=== PATIENT | male | born 1935 | race Caucasian/White ===

== ENCOUNTER 2016-12-20 12:12 | Day surgery (SDC) | payer MEDICARE ==
[2016-12-13 08:12] LABS: HEMATOCRIT 45.6 % (40.0-51.0); HEMOGLOBIN 16.1 g/dL (13.6-17.8)
[2016-12-13 08:22] LABS: BUN (BLOOD UREA NITROGEN) 13 MG/DL (6-23); CHLORIDE, SERUM 105 MMOL/L (96-112); CO2 (CARBON DIOXIDE) 33 MMOL/L (24-34); CREATININE 0.84 MG/DL (0.70-1.30); GFR AFRICAN AMERICAN 97 ML/MIN (>=60); GFR NON AFRICAN AMERICAN 84 ML/MIN (>=60); GLUCOSE, SERUM 131 MG/DL (60-99); POTASSIUM, SERUM 4.2 MMOL/L (3.5-5.3); SODIUM, SERUM 142 MMOL/L (135-148)
[~2016-12-20] VITALS: Ht 180.3 cm; Wt 85.7 kg
--- NOTE | ~2016-12-20 | OP ---
Record Of Operation [facility] [address] [place]. [address] NAME: ESPERANZA MCCALLUM : 39 STATUS : [facility]#: [id number] AGE: 81 ADM/REG DATE : 12/20/16 MR#: [id number] REPORT SERV DATE: 12/20/16 DICTATED BY: RAF ZALDIVAR JR. DATE: 12/20/16 REPORT STATUS : Draft TRANSCRIBED BY: ALFRED DATE: 12/20/16 DATE OF PROCEDURE: 12/20/2016 DATASTAGE CONSULTANT: Mony Webb. PROCEDURES: Repair of left inguinal hernia. PREOPERATIVE DIAGNOSIS: Left inguinal hernia. POSTOPERATIVE DIAGNOSIS: Left inguinal hernia. ANESTHESIA: General. INDICATIONS: The patient presented with progressive swelling in the left groin that was symptomatic, worse with activity. Physical exam findings consistent with inguinal hernia and repair was indicated. FINDINGS: On exploration of the inguinal area, there was evidence of a direct inguinal hernia. This was repaired with a tension-free mesh repair. DESCRIPTION OF PROCEDURE: With adequate general anesthesia, the patient was placed in supine position. The left groin was prepped and draped sterilely. 0.5% Marcaine was used for local with infiltration of anesthesia. A curvilinear incision was made within the groin. The incision was deepened down into the subcutaneous tissues. The external oblique was identified. This was divided from the area of the internal ring towards the external ring. With this accomplished, the cord structures were dissected free of the surrounding tissues. Direct hernia defect was identified. The cord was skeletonized. The cord lipoma was excised from the remaining structures and amputated at the internal ring was submitted to Pathology. There was no indirect sac identified. Then, a Parietex ProGrip mesh was used and cut to appropriate size. It was secured medially to pubic tubercle, conjoined tendon, transversalis, and inguinal ligament. The precut defect was placed around the cord at the internal ring. Then, this produced satisfactory repair. The external oblique was then closed over this with a running 2-0 Vicryl. The skin was closed with subcutaneous Vicryl, and skin with dermal Monocryl. Sterile dressings were applied. The patient left the operating room in satisfactory condition. ESTIMATED BLOOD LOSS: For the procedure was 10 mL. DAVIN/ALFRED Raf Zaldivar Jr., M.D. / [id number] Record Of Operation [facility] [address] [place]. [address] NAME: ESPERANZA MCCALLUM : 39 STATUS : [facility] PAT#: [id number] AGE: 81 ADM/REG DATE : 12/20/16 MR#: [id number] REPORT SERV DATE: 12/20/16 DICTATED BY: RAF ZALDIVAR JR. DATE: 12/20/16 REPORT STATUS : Draft TRANSCRIBED BY: ALFRED DATE: 12/20/16 CC: Luis Villegas Jr., Jr., M.D.
[~2016-12-20 12:12] MED LIST: ASAB PO; NIACIN OTC PO; STATIN PO
== END 2016-12-20 17:57 | disposition home or self-care (01) ==
LOC: SDC 12:12
PROVIDERS: Specialist
PROC: 0YU60JZ Supplement Left Inguinal Region with Synthetic Substitute, Open Approach (ICD-10-PCS; principal; 2016-12-20 14:00)
DX: K40.90 Unilateral inguinal hernia, without obstruction or gangrene, not specified as recurrent (principal); E78.5 Hyperlipidemia, unspecified; M54.12 Radiculopathy, cervical region; Z88.0 Allergy status to penicillin; Z79.82 Long term (current) use of aspirin; Z98.890 Other specified postprocedural states
CPT/HCPCS: 80048; 85014; 85018; 88304; 93005; A9270-GY; C1781; J0690; J2270; J2405; J2710; J3010